=== PATIENT | male | born 1960 | race American Indian/Alaskan Native ===

== ENCOUNTER 2017-12-10 12:17 | Inpatient (IN) | payer MEDICAID ==
[2017-12-10 14:15] LABS: Hematocrit 43.9 % (35.5-45.6); Hemoglobin 14.6 gm/dl (11.8-15.2); Mean Corpuscular HGB Conc 33 % (32-34); Mean Corpuscular Hemoglobin 30 pg (28-32); Mean Corpuscular Volume 90 fl (84-94); Platelet Count 244 K/mm3 (140-440); Red Blood Count 4.88 M/mm3 (3.65-5.03); Red Cell Distribution Width 13.8 % (13.2-15.2)
[2017-12-10 14:19] LABS: Bacteria,Urine 2+ /HPF (Negative); Bilirubin,Urine NEG (Negative); Blood,Urine LG (Negative); Color,Urine Yellow (Yellow); Mucus,Urine 1+ /HPF; WBC,Urine > 182.0 /HPF (0.0-6.0)
--- NOTE | 2017-12-10 14:22 | XRay Report ---
AP CHEST: HISTORY: Altered mental status, recent pneumonia AP view of the chest demonstrates a normal mediastinal and cardiac contour with clear lungs and normal bony and soft tissue structures. IMPRESSION: Unremarkable AP chest.
[2017-12-10 14:25] LABS: INR 0.91 (0.87-1.13)
[2017-12-10 14:26] LABS: Partial Thromboplastin Time 33.2 Sec. (24.2-36.6)
--- NOTE | 2017-12-10 14:27 | Cat Scan Report ---
FINAL REPORT EXAM: CT HEAD/BRAIN WO CON HISTORY: Altered Mental Status TECHNIQUE: CT of the head was performed without intravenous contrast. PRIORS: None. FINDINGS: The ventricles are normal in shape and position. The ventricles are nondilated. No intracranial hemorrhage, mass, mass effect, midline shift or evidence of acute ischemic infarct. The basilar cisterns are patent. Confluent areas of low-attenuation are seen in the periventricular and subcortical white matter. Mucosal thickening of the ethmoid, frontal and right maxillary sinuses is likely congestive or inflammatory. The extracranial soft tissues demonstrate no abnormality. The calvarium is intact. The orbits are intact. There is a left mastoid effusion. IMPRESSION: 1. Severe white matter changes which are nonspecific in a patient this age although may be related to chronic microvascular ischemic disease versus a demyelinating or inflammatory process. 2. Left mastoid effusion. 3. Mucosal thickening of the ethmoid, frontal and right maxillary sinuses is likely congestive or inflammatory.
[2017-12-10 14:39] LABS: Alanine Aminotransferase 12 units/L (7-56); Albumin 3.9 g/dL (3.9-5); BUN/Creatinine Ratio 12; Blood Urea Nitrogen 11 mg/dL (9-20); Calcium 9.1 mg/dL (8.4-10.2); Hemolysis Index 6
[2017-12-10] MEDS ORDERED: ROCEPHIN/NS 1 GM/50 ML 1 GM/50 ML BAG IV ONE (14:44)
[2017-12-10 14:47] LABS: Free T4 (Free Thyroxine) 1.09 ng/dL (0.76-1.46)
--- NOTE | 2017-12-10 14:51 | Emergency Department Report ---
ED Altered Mental Status HPI - General Chief Complaint: Altered Mental Status Stated Complaint: AMS Time Seen by Provider: 12/10/17 12:42 Source: EMS Mode of arrival: Stretcher Limitations: Altered Mental Status - History of Present Illness Initial Comments: 57-year-old male with a past medical history dementia, previous CVA with unknown deficits, and hypertension presents to Hospital complains of also recent mental status from [facility]. Patient is oriented to self only. As per transfer sheet patient was not responding well and couldn't raise his right arm or wheeze with his right hand prior to arrival. Patient denies any pain currently and does not know why he is here. No other history of present illness available at this time. PMD R Cardenas - Related Data Previous Rx's Medication Instructions Recorded Last Taken Type Pantoprazole [Protonix TAB] 40 mg PO BID tablet 10/05/15 Unknown Rx Allergies Allergy/AdvReac Type Severity Reaction Status Date / Time No Known Allergies Allergy Unverified 01/16/15 16:16 ED Review of Systems ROS: Stated complaint: AMS Other details as noted in HPI Comment: Unobtainable due to pts medical conditions (limited due to dementia) ED Past Medical Hx - Past Medical History Previous Medical History?: Yes Hx Dementia: Yes Additional medical history: GEN, bradycardia, GERD, Htn - Surgical History Past Surgical History?: No Additional Surgical History: GEN - Social History Smoking Status: Unknown if ever smoked Substance Use Type: None - Medications Home Medications: Home Medications Medication Instructions Recorded Confirmed Last Taken Type Pantoprazole [Protonix TAB] 40 mg PO BID tablet 10/05/15 Unknown Rx ED Physical Exam - General Limitations: Altered Mental Status - Other Other exam information: General: No limitations, patient is alert in no acute distress Head exam: Atraumatic, normocephalic Eyes exam: Normal appearance, pupils equal reactive to light, extraocular movements intact ENT: Moist mucous membrane, normal oropharynx Neck exam: Normal inspection, full range of motion, no meningismus nontender Respiratory exam: Clear to auscultation bilateral, no wheezes, rales, crackles Cardiovascular: Normal rate and rhythm, normal heart sounds Abdomen: Soft, nondistended, and nontender, with normal bowel sounds, no rebound, or guarding Extremity: Full range of motion normal inspection no deformity Back: Normal Inspection, full range of motion, no tenderness Neurologic: Alert, oriented to self only, no facial droop, speech clear, mild left-sided weakness with decreased foot dorsiflexion and handgrip on the left. Sensation intact Psychiatric: normal affect, normal mood Skin: Warm, dry, intact ED Course Vital Signs 12/10/17 12/10/17 12/10/17 12:17 12:24 12:33 Temperature 97.6 F 97.6 F Pulse Rate 97 H 100 H 100 H Respiratory 19 20 20 Rate Blood Pressure 108/73 Blood Pressure 108/73 [Left] O2 Sat by Pulse 99 98 Oximetry - Reevaluation(s) Reevaluation #1: 12/10/17 14:55 stable, mild tachycardia, responsive since arrival - Lab Data Result diagrams: 12/10/17 13:58 12/10/17 13:58 Lab Results 12/10/17 12/10/17 12/10/17 Range/Units 13:53 13:58 13:58 WBC 18.0 H (4.5-11.0) K/mm3 RBC 4.88 (3.65-5.03) M/mm3 Hgb 14.6 (11.8-15.2) gm/dl Hct 43.9 (35.5-45.6) % MCV 90 (84-94) fl MCH 30 (28-32) pg MCHC 33 (32-34) % RDW 13.8 (13.2-15.2) % Plt Count 244 (140-440) K/mm3 Seg Neutrophils % Inspector Multifocal Lens PT 12.7 (12.2-14.9) Sec. INR 0.91 (0.87-1.13) APTT 33.2 (24.2-36.6) Sec. Sodium (137-145) mmol/L Potassium (3.6-5.0) mmol/L Chloride (98-107) mmol/L Carbon Dioxide (22-30) mmol/L Anion Gap mmol/L BUN (9-20) mg/dL Creatinine (0.8-1.5) mg/dL Estimated GFR ml/min BUN/Creatinine Ratio % Glucose (75-100) mg/dL Lactic Acid (0.7-2.0) mmol/L Calcium (8.4-10.2) mg/dL Total Bilirubin (0.1-1.2) mg/dL AST (5-40) units/L ALT (7-56) units/L Alkaline Phosphatase (35-129) units/L Ammonia (25-60) umol/L Troponin T (0.00-0.029) ng/mL Total Protein (6.3-8.2) g/dL Albumin (3.9-5) g/dL Albumin/Globulin Ratio % TSH (0.270-4.200) mlU/mL Free T4 (0.76-1.46) ng/dL Urine Color Yellow (Yellow) Urine Turbidity Clear (Clear) Urine pH 6.0 (5.0-7.0) Ur Specific [place] 1.017 (1.003-1.030) Urine Protein 100 mg/dl (Negative) mg/dL Urine Glucose (UA) Neg (Negative) mg/dL Urine Ketones Neg (Negative) mg/dL Urine Blood Lg (Negative) Urine Nitrite Pos (Negative) Urine Bilirubin Neg (Negative) Urine Urobilinogen 4.0 (<2.0) mg/dL Ur Leukocyte Esterase Lg (Negative) Urine WBC (Auto) > 182.0 H (0.0-6.0) /HPF Urine RBC (Auto) 145.0 (0.0-6.0) /HPF Urine Bacteria (Auto) 2+ (Negative) /HPF Urine WBC Clumps 3+ /HPF Urine Mucus 1+ /HPF Urine Yeast (Budding) 3+ /HPF Salicylates (2.8-20.0) mg/dL Acetaminophen (10.0-30.0) ug/mL Plasma/Serum Alcohol (0-0.07) % 12/10/17 12/10/17 12/10/17 Range/Units 13:58 13:58 13:58 WBC (4.5-11.0) K/mm3 RBC (3.65-5.03) M/mm3 Hgb (11.8-15.2) gm/dl Hct (35.5-45.6) % MCV (84-94) fl MCH (28-32) pg MCHC (32-34) % RDW (13.2-15.2) % Plt Count (140-440) K/mm3 Seg Neutrophils % PT (12.2-14.9) Sec. INR (0.87-1.13) APTT (24.2-36.6) Sec. Sodium 138 (137-145) mmol/L Potassium 4.0 (3.6-5.0) mmol/L Chloride 98.4 (98-107) mmol/L Carbon Dioxide 27 (22-30) mmol/L Anion Gap 17 mmol/L BUN 11 (9-20) mg/dL Creatinine 0.9 (0.8-1.5) mg/dL Estimated GFR > 60 ml/min BUN/Creatinine Ratio 12 % Glucose 110 H (75-100) mg/dL Lactic Acid 1.20 (0.7-2.0) mmol/L Calcium 9.1 (8.4-10.2) mg/dL Total Bilirubin 0.60 (0.1-1.2) mg/dL AST 19 (5-40) units/L ALT 12 (7-56) units/L Alkaline Phosphatase 60 (35-129) units/L Ammonia (25-60) umol/L Troponin T 0.016 (0.00-0.029) ng/mL Total Protein 7.9 (6.3-8.2) g/dL Albumin 3.9 (3.9-5) g/dL Albumin/Globulin Ratio 1.0 % TSH (0.270-4.200) mlU/mL Free T4 (0.76-1.46) ng/dL Urine Color (Yellow) Urine Turbidity (Clear) Urine pH (5.0-7.0) Ur Specific [place] (1.003-1.030) Urine Protein (Negative) mg/dL Urine Glucose (UA) (Negative) mg/dL Urine Ketones (Negative) mg/dL Urine Blood (Negative) Urine Nitrite (Negative) Urine Bilirubin (Negative) Urine Urobilinogen (<2.0) mg/dL Ur Leukocyte Esterase (Negative) Urine WBC (Auto) (0.0-6.0) /HPF Urine RBC (Auto) (0.0-6.0) /HPF Urine Bacteria (Auto) (Negative) /HPF Urine WBC Clumps /HPF Urine Mucus /HPF Urine Yeast (Budding) /HPF Salicylates < 0.3 L (2.8-20.0) mg/dL Acetaminophen (10.0-30.0) ug/mL Plasma/Serum Alcohol (0-0.07) % 12/10/17 12/10/17 12/10/17 Range/Units 13:58 13:58 13:58 WBC (4.5-11.0) K/mm3 RBC (3.65-5.03) M/mm3 Hgb (11.8-15.2) gm/dl Hct (35.5-45.6) % MCV (84-94) fl MCH (28-32) pg MCHC (32-34) % RDW (13.2-15.2) % Plt Count (140-440) K/mm3 Seg Neutrophils % PT (12.2-14.9) Sec. INR (0.87-1.13) APTT (24.2-36.6) Sec. Sodium (137-145) mmol/L Potassium (3.6-5.0) mmol/L Chloride (98-107) mmol/L Carbon Dioxide (22-30) mmol/L Anion Gap mmol/L BUN (9-20) mg/dL Creatinine (0.8-1.5) mg/dL Estimated GFR ml/min BUN/Creatinine Ratio % Glucose (75-100) mg/dL Lactic Acid (0.7-2.0) mmol/L Calcium (8.4-10.2) mg/dL Total Bilirubin (0.1-1.2) mg/dL AST (5-40) units/L ALT (7-56) units/L Alkaline Phosphatase (35-129) units/L Ammonia (25-60) umol/L Troponin T 0.016 (0.00-0.029) ng/mL Total Protein (6.3-8.2) g/dL Albumin (3.9-5) g/dL Albumin/Globulin Ratio % TSH (0.270-4.200) mlU/mL Free T4 (0.76-1.46) ng/dL Urine Color (Yellow) Urine Turbidity (Clear) Urine pH (5.0-7.0) Ur Specific [place] (1.003-1.030) Urine Protein (Negative) mg/dL Urine Glucose (UA) (Negative) mg/dL Urine Ketones (Negative) mg/dL Urine Blood (Negative) Urine Nitrite (Negative) Urine Bilirubin (Negative) Urine Urobilinogen (<2.0) mg/dL Ur Leukocyte Esterase (Negative) Urine WBC (Auto) (0.0-6.0) /HPF Urine RBC (Auto) (0.0-6.0) /HPF Urine Bacteria (Auto) (Negative) /HPF Urine WBC Clumps /HPF Urine Mucus /HPF Urine Yeast (Budding) /HPF Salicylates (2.8-20.0) mg/dL Acetaminophen < 15.0 (10.0-30.0) ug/mL Plasma/Serum Alcohol < 0.01 (0-0.07) % 12/10/17 12/10/17 Range/Units 13:58 13:58 WBC (4.5-11.0) K/mm3 RBC (3.65-5.03) M/mm3 Hgb (11.8-15.2) gm/dl Hct (35.5-45.6) % MCV (84-94) fl MCH (28-32) pg MCHC (32-34) % RDW (13.2-15.2) % Plt Count (140-440) K/mm3 Seg Neutrophils % PT (12.2-14.9) Sec. INR (0.87-1.13) APTT (24.2-36.6) Sec. Sodium (137-145) mmol/L Potassium (3.6-5.0) mmol/L Chloride (98-107) mmol/L Carbon Dioxide (22-30) mmol/L Anion Gap mmol/L BUN (9-20) mg/dL Creatinine (0.8-1.5) mg/dL Estimated GFR ml/min BUN/Creatinine Ratio % Glucose (75-100) mg/dL Lactic Acid (0.7-2.0) mmol/L Calcium (8.4-10.2) mg/dL Total Bilirubin (0.1-1.2) mg/dL AST (5-40) units/L ALT (7-56) units/L Alkaline Phosphatase (35-129) units/L Ammonia 24.0 L (25-60) umol/L Troponin T (0.00-0.029) ng/mL Total Protein (6.3-8.2) g/dL Albumin (3.9-5) g/dL Albumin/Globulin Ratio % TSH 2.010 (0.270-4.200) mlU/mL Free T4 1.09 (0.76-1.46) ng/dL Urine Color (Yellow) Urine Turbidity (Clear) Urine pH (5.0-7.0) Ur Specific [place] (1.003-1.030) Urine Protein (Negative) mg/dL Urine Glucose (UA) (Negative) mg/dL Urine Ketones (Negative) mg/dL Urine Blood (Negative) Urine Nitrite (Negative) Urine Bilirubin (Negative) Urine Urobilinogen (<2.0) mg/dL Ur Leukocyte Esterase (Negative) Urine WBC (Auto) (0.0-6.0) /HPF Urine RBC (Auto) (0.0-6.0) /HPF Urine Bacteria (Auto) (Negative) /HPF Urine WBC Clumps /HPF Urine Mucus /HPF Urine Yeast (Budding) /HPF Salicylates (2.8-20.0) mg/dL Acetaminophen (10.0-30.0) ug/mL Plasma/Serum Alcohol (0-0.07) % - EKG Data -: EKG Interpreted by Me (jules) EKG shows normal: sinus rhythm, axis (-49), QRS complexes (102), ST-T waves (no stemi/t inv) Rate: tachycardia (102) - Radiology Data Radiology results: report reviewed Read By radiologist CT head: Severe white matter changes which are nonspecific. Left mastoid effusion. Mucosal thickening of the ethmoid, frontal, and right maxillary sinus likely congestive or inflammatory Chest x-ray: Unremarkable - Medical Decision Making Patient has UTI likely cause of alteration in mental status with chronic dementia. Also multiple sinus findings identified on ENT. Levaquin ordered to cover for sinusitis as well as UTI. Cultures pending. - Differential Diagnosis delirium, dementia, ICH, CVA, UTI, encephalopathy Critical Care Time: No Critical care attestation.: If time is entered above; I have spent that time in minutes in the direct care of this critically ill patient, excluding procedure time. ED Disposition Clinical Impression: Altered mental status, UTI (urinary tract infection), Sinusitis, Dementia, Leukocytosis Disposition: DC09 OP ADMIT IP TO THIS HOSP Is pt being admited?: Yes Condition: Stable Time of Disposition: 14:54
[2017-12-10] MEDS ORDERED: LEVAQUIN 750MG/150ML 750 MG/150 ML BAG IV ONE (14:52)
--- NOTE | 2017-12-10 15:08 | History and Physical Report ---
History of Present Illness Chief complaint: confusion History of present illness: 57 YO Male [facility] Resident with CVA, Dementia, GERD, HTN presents to ED for evaluation. Pt nonverbal, and unable to provide history. Pt history taken from ED Staff, SNF Staff, and EMS. Pt was found by SNF staff to be more confused today with decreased interaction with staff. EMS notified, and upon arrival the patient was found to be hypotensive and tachycardic with altered level of consciousness. Pt transported to [facility] for further care and evaluation. Pt seen and evaluated in ED and found to have UTI complicated by sepsis. Pt initiated on sepsis protocol and admitted to the medical floor. No reports of fever, chills, palpitations, NVD, falls, trauma, productive cough, hematuria, or known recent ill contacts. Past History Past Medical History: GERD, hypertension, stroke Past Surgical History: No surgical history, Other (reviewed) Social history: single. denies: smoking, alcohol abuse, prescription drug abuse Family history: no significant family history (reviewed) Medications and Allergies Allergies Allergy/AdvReac Type Severity Reaction Status Date / Time No Known Allergies Allergy Unverified 01/16/15 16:16 Home Medications Medication Instructions Recorded Confirmed Last Taken Type Multivitamin [Multiple Vitamins] 1 each PO DAILY 12/10/17 12/10/17 Unknown History Active Meds: Active Medications Levofloxacin/Dextrose (Levaquin 750mg/150ml) 750 mg in 150 mls @ 100 mls/hr IV ONCE ONE Stop: 12/10/17 16:21 Review of Systems ROS unobtainable: due to mental status Exam - Constitutional Vitals: Temp Pulse Resp BP Pulse Ox 97.6 F 100 H 20 108/73 98 12/10/17 12:33 12/10/17 12:33 12/10/17 12:33 12/10/17 12:33 12/10/17 12:33 General appearance: Present: mild distress - EENT Eyes: Present: PERRL ENT: hearing intact, clear oral mucosa - Neck Neck: Present: supple, normal ROM - Respiratory Respiratory effort: normal Respiratory: bilateral: CTA - Cardiovascular Rhythm: other (tachycardia) Heart Sounds: Present: S1 & S2. Absent: rub, click - Extremities Extremities: pulses symmetrical, No edema Peripheral Pulses: abnormal (capillary refill greater than 3.6 seconds) - Abdominal General gastrointestinal: Present: soft, non-tender, non-distended, normal bowel sounds Male genitourinary: Present: normal - Integumentary Integumentary: Present: clear, dry, clammy, decreased turgor - Musculoskeletal Musculoskeletal: generalized weakness - Psychiatric Psychiatric: no intact judgment & insight, no memory intact - Neurologic Neurologic: focal deficits, no gait normal Results - Labs CBC & Chem 7: 12/10/17 13:58 12/10/17 13:58 Labs: Abnormal lab results 12/10/17 12/10/17 12/10/17 Range/Units 13:53 13:58 13:58 WBC 18.0 H (4.5-11.0) K/mm3 Glucose 110 H (75-100) mg/dL Ammonia (25-60) umol/L Urine WBC (Auto) > 182.0 H (0.0-6.0) /HPF Salicylates (2.8-20.0) mg/dL 12/10/17 12/10/17 Range/Units 13:58 13:58 WBC (4.5-11.0) K/mm3 Glucose (75-100) mg/dL Ammonia 24.0 L (25-60) umol/L Urine WBC (Auto) (0.0-6.0) /HPF Salicylates < 0.3 L (2.8-20.0) mg/dL Assessment and Plan - Patient Problems (1) Sepsis Current Visit: Yes Status: Acute Qualifiers: Sepsis type: sepsis due to unspecified organism Qualified Code(s): A41.9 - Sepsis, unspecified organism Plan to address problem: IV Antibiotic therapy, urinalysis, blood cultures, monitor uop q shift, serial lactic acid, IVF resuscitation, (2) Encephalopathy Current Visit: Yes Status: Acute Plan to address problem: CT Head, treat sepsis, neuro checks, (3) GERD (gastroesophageal reflux disease) Current Visit: Yes Status: Acute Qualifiers: Esophagitis presence: without esophagitis Qualified Code(s): K21.9 - Gastro -esophageal reflux disease without esophagitis Plan to address problem: PPI therapy, supportive care. (4) HTN (hypertension) Current Visit: Yes Status: Acute Qualifiers: Hypertension type: essential hypertension Qualified Code(s): I10 - Essential (primary) hypertension Plan to address problem: monitor BP q shift, Pt currently hypotensive, hold antihypertensive therapy for now. (5) UTI (urinary tract infection) Current Visit: Yes Status: Acute Qualifiers: Encounter type: initial encounter Plan to address problem: IV antibiotics, IVF resuscitation, monitor uop q shift, (6) DVT prophylaxis Current Visit: Yes Status: Acute
[2017-12-10] MEDS ORDERED: TYLENOL PO PRN (15:10)
[2017-12-10] MEDS ORDERED: VANCOMYCIN VIAL IV ONE (15:10)
[2017-12-10] MEDS ORDERED: PROVENTIL IH PRN (15:10)
[2017-12-10] MEDS ORDERED: NACL 0.9% 1000 ML IV ONE (15:10)
[2017-12-10] MEDS ORDERED: ZOFRAN IV PRN (15:10)
[2017-12-10] MEDS ORDERED: SODIUM CHLORIDE FLUSH SYRINGE 10 ML IV PRN (15:10)
[2017-12-10 15:14] LABS: Band Neutrophils # (Manual) 6.7 K/mm3; Basophils % (Manual) 0 % (0.0-1.8); Eosinophils % (Manual) 0 % (0.0-4.3); Platelet Estimate Consistent w Auto; RBC Morphology Normal; Total Cells Counted 100
[2017-12-10] MEDS ORDERED: VANCOMYCIN PHARMACY TO DOSE IV SCH (16:00)
[2017-12-10] MEDS ORDERED: LEVAQUIN 750MG/150ML 750 MG/150 ML BAG IV SCH (16:00)
[2017-12-10] MEDS ORDERED: VANCOMYCIN 1,500 MG in NACL 0.9% 500 ML 500 ML IV ONE (17:00)
[2017-12-10] MEDS: SODIUM CHLORIDE FLUSH SYRINGE 10 ML IV SCH (22:29)
[2017-12-10] MEDS: PROTONIX PO SCH (22:29)
[2017-12-11] MEDS: VANCOMYCIN 1,250 MG in NACL 0.9% 250ML 250 ML IV SCH ×2 (06:11→18:56)
[2017-12-11] MEDS: PROTONIX PO SCH ×2 (10:28→21:42)
[2017-12-11] MEDS: LEVAQUIN 750MG/150ML 750 MG/150 ML BAG IV SCH (10:28)
[2017-12-11] MEDS: SODIUM CHLORIDE FLUSH SYRINGE 10 ML IV SCH ×2 (10:30→21:42)
--- NOTE | 2017-12-11 10:53 | Progress Note ---
Assessment and Plan Assessment and plan: Sepsis. Continue IV antibiotics. Follow-up urine and blood cultures. Patient with mildly elevated lactic acid levels. Continue to follow serial lactic acid levels. Toxic metabolic encephalopathy. Resolving. CT of the head is negative. Continue to treat sepsis. Urinary tract infection. Continue antibiotic support follow-up urine cultures. GERD. Continue PPI. Hypertension. Continue antihypertensive medications. History CVA. Supportive care. DVT prophylaxis. History Interval history: No new issues overnight. Patient is alert and oriented 3. Hospitalist Physical - Constitutional Vitals: Temp Pulse Resp BP Pulse Ox 97.4 F L 69 18 82/53 100 12/11/17 08:00 12/11/17 08:00 12/11/17 08:00 12/11/17 08:00 12/11/17 08:00 General appearance: Present: mild distress - EENT Eyes: Present: PERRL, EOM intact ENT: hearing intact, clear oral mucosa, dentition normal - Neck Neck: Present: supple, normal ROM - Respiratory Respiratory effort: normal Respiratory: bilateral: CTA - Cardiovascular Rhythm: regular Heart Sounds: Present: S1 & S2. Absent: gallop, rub - Extremities Extremities: no ischemia, No edema, Full ROM - Abdominal General gastrointestinal: soft, non-tender, non-distended, normal bowel sounds - Integumentary Integumentary: Present: clear, warm, dry - Neurologic Neurologic: CNII-XII intact, moves all extremities Results - Labs CBC & Chem 7: 12/10/17 13:58 12/10/17 13:58 Labs: Laboratory Last Values WBC 18.0 K/mm3 (4.5-11.0) H 12/10/17 13:58 RBC 4.88 M/mm3 (3.65-5.03) 12/10/17 13:58 Hgb 14.6 gm/dl (11.8-15.2) 12/10/17 13:58 Hct 43.9 % (35.5-45.6) 12/10/17 13:58 MCV 90 fl (84-94) 12/10/17 13:58 MCH 30 pg (28-32) 12/10/17 13:58 MCHC 33 % (32-34) 12/10/17 13:58 RDW 13.8 % (13.2-15.2) 12/10/17 13:58 Plt Count 244 K/mm3 (140-440) 12/10/17 13:58 Add Manual Diff Complete 12/10/17 13:58 Total Counted 100 12/10/17 13:58 Seg Neutrophils % Mechanical Cad Designer 12/10/17 13:58 Seg Neuts % (Manual) 60.0 % (40.0-70.0) 12/10/17 13:58 Band Neutrophils % 37.0 % 12/10/17 13:58 Lymphocytes % (Manual) 2.0 % (13.4-35.0) L 12/10/17 13:58 Reactive Lymphs % (Man) 0 % 12/10/17 13:58 Monocytes % (Manual) 1.0 % (0.0-7.3) 12/10/17 13:58 Eosinophils % (Manual) 0 % (0.0-4.3) 12/10/17 13:58 Basophils % (Manual) 0 % (0.0-1.8) 12/10/17 13:58 Metamyelocytes % 0 % 12/10/17 13:58 Myelocytes % 0 % 12/10/17 13:58 Promyelocytes % 0 % 12/10/17 13:58 Blast Cells % 0 % 12/10/17 13:58 Nucleated RBC % Not Reportable 12/10/17 13:58 Seg Neutrophils # Man 10.8 K/mm3 (1.8-7.7) H 12/10/17 13:58 Band Neutrophils # 6.7 K/mm3 12/10/17 13:58 Lymphocytes # (Manual) 0.4 K/mm3 (1.2-5.4) L 12/10/17 13:58 Abs React Lymphs (Man) 0.0 K/mm3 12/10/17 13:58 Monocytes # (Manual) 0.2 K/mm3 (0.0-0.8) 12/10/17 13:58 Eosinophils # (Manual) 0.0 K/mm3 (0.0-0.4) 12/10/17 13:58 Basophils # (Manual) 0.0 K/mm3 (0.0-0.1) 12/10/17 13:58 Metamyelocytes # 0.0 K/mm3 12/10/17 13:58 Myelocytes # 0.0 K/mm3 12/10/17 13:58 Promyelocytes # 0.0 K/mm3 12/10/17 13:58 Blast Cells # 0.0 K/mm3 12/10/17 13:58 WBC Morphology Not Reportable 12/10/17 13:58 Hypersegmented Neuts Not Reportable 12/10/17 13:58 Hyposegmented Neuts Not Reportable 12/10/17 13:58 Hypogranular Neuts Not Reportable 12/10/17 13:58 Smudge Cells Not Reportable 12/10/17 13:58 Toxic Granulation Not Reportable 12/10/17 13:58 Toxic Vacuolation Not Reportable 12/10/17 13:58 Dohle Bodies Not Reportable 12/10/17 13:58 Pelger-Huet Anomaly Not Reportable 12/10/17 13:58 Compa Rods Not Reportable 12/10/17 13:58 Platelet Estimate Consistent w auto 12/10/17 13:58 Clumped Platelets Not Reportable 12/10/17 13:58 Plt Clumps, EDTA Not Reportable 12/10/17 13:58 Large Platelets Not Reportable 12/10/17 13:58 Giant Platelets Not Reportable 12/10/17 13:58 Platelet Satelliting Not Reportable 12/10/17 13:58 Plt Morphology Comment Not Reportable 12/10/17 13:58 RBC Morphology Normal 12/10/17 13:58 Dimorphic RBCs Not Reportable 12/10/17 13:58 Polychromasia Not Reportable 12/10/17 13:58 Hypochromasia Not Reportable 12/10/17 13:58 Poikilocytosis Not Reportable 12/10/17 13:58 Anisocytosis Not Reportable 12/10/17 13:58 Microcytosis Not Reportable 12/10/17 13:58 Macrocytosis Not Reportable 12/10/17 13:58 Spherocytes Not Reportable 12/10/17 13:58 Pappenheimer Bodies Not Reportable 12/10/17 13:58 Sickle Cells Not Reportable 12/10/17 13:58 Target Cells Not Reportable 12/10/17 13:58 Tear Drop Cells Not Reportable 12/10/17 13:58 Ovalocytes Not Reportable 12/10/17 13:58 Helmet Cells Not Reportable 12/10/17 13:[address] [place] Bodies Not Reportable 12/10/17 13:58 Gary Rings Not Reportable 12/10/17 13:58 Jean Paul Cells Not Reportable 12/10/17 13:58 Bite Cells Not Reportable 12/10/17 13:58 Crenated Cell Not Reportable 12/10/17 13:58 Elliptocytes Not Reportable 12/10/17 13:58 Acanthocytes (Spur) Not Reportable 12/10/17 13:58 Rouleaux Not Reportable 12/10/17 13:58 Hemoglobin C Crystals Not Reportable 12/10/17 13:58 Schistocytes Not Reportable 12/10/17 13:58 Malaria parasites Not Reportable 12/10/17 13:58 Jasvir Bodies Not Reportable 12/10/17 13:58 Hem Pathologist Commnt No 12/10/17 13:58 PT 12.7 Sec. (12.2-14.9) 12/10/17 13:58 INR 0.91 (0.87-1.13) 12/10/17 13:58 APTT 33.2 Sec. (24.2-36.6) 12/10/17 13:58 Sodium 138 mmol/L (137-145) 12/10/17 13:58 Potassium 4.0 mmol/L (3.6-5.0) 12/10/17 13:58 Chloride 98.4 mmol/L (98-107) 12/10/17 13:58 Carbon Dioxide 27 mmol/L (22-30) 12/10/17 13:58 Anion Gap 17 mmol/L 12/10/17 13:58 BUN 11 mg/dL (9-20) 12/10/17 13:58 Creatinine 0.9 mg/dL (0.8-1.5) 12/10/17 13:58 Estimated GFR > 60 ml/min 12/10/17 13:58 BUN/Creatinine Ratio 12 % 12/10/17 13:58 Glucose 110 mg/dL (75-100) H 12/10/17 13:58 Lactic Acid 0.90 mmol/L (0.7-2.0) 12/11/17 05:45 Calcium 9.1 mg/dL (8.4-10.2) 12/10/17 13:58 Total Bilirubin 0.60 mg/dL (0.1-1.2) 12/10/17 13:58 AST 19 units/L (5-40) 12/10/17 13:58 ALT 12 units/L (7-56) 12/10/17 13:58 Alkaline Phosphatase 60 units/L (35-129) 12/10/17 13:58 Ammonia 24.0 umol/L (25-60) L 12/10/17 13:58 Troponin T < 0.010 ng/mL (0.00-0.029) 12/10/17 17:44 Total Protein 7.9 g/dL (6.3-8.2) 12/10/17 13:58 Albumin 3.9 g/dL (3.9-5) 12/10/17 13:58 Albumin/Globulin Ratio 1.0 % 12/10/17 13:58 TSH 2.010 mlU/mL (0.270-4.200) 12/10/17 13:58 Free T4 1.09 ng/dL (0.76-1.46) 12/10/17 13:58 Urine Color Yellow (Yellow) 12/10/17 13:53 Urine Turbidity Clear (Clear) 12/10/17 13:53 Urine pH 6.0 (5.0-7.0) 12/10/17 13:53 Ur Specific [place] 1.017 (1.003-1.030) 12/10/17 13:53 Urine Protein 100 mg/dl mg/dL (Negative) 12/10/17 13:53 Urine Glucose (UA) Neg mg/dL (Negative) 12/10/17 13:53 Urine Ketones Neg mg/dL (Negative) 12/10/17 13:53 Urine Blood Lg (Negative) 12/10/17 13:53 Urine Nitrite Pos (Negative) 12/10/17 13:53 Urine Bilirubin Neg (Negative) 12/10/17 13:53 Urine Urobilinogen 4.0 mg/dL (<2.0) 12/10/17 13:53 Ur Leukocyte Esterase Lg (Negative) 12/10/17 13:53 Urine WBC (Auto) > 182.0 /HPF (0.0-6.0) H 12/10/17 13:53 Urine RBC (Auto) 145.0 /HPF (0.0-6.0) 12/10/17 13:53 Urine Bacteria (Auto) 2+ /HPF (Negative) 12/10/17 13:53 Urine WBC Clumps 3+ /HPF 12/10/17 13:53 Urine Mucus 1+ /HPF 12/10/17 13:53 Urine Yeast (Budding) 3+ /HPF 12/10/17 13:53 Salicylates < 0.3 mg/dL (2.8-20.0) L 12/10/17 13:58 Acetaminophen < 15.0 ug/mL (10.0-30.0) 12/10/17 13:58 Plasma/Serum Alcohol < 0.01 % (0-0.07) 12/10/17 13:58
[2017-12-11] MEDS ORDERED: PNEUMOVAX 23 IM ONE (12:00)
[2017-12-12 05:49] LABS: Basophils # (Auto) 0.1 K/mm3 (0.0-0.1); Basophils % (Auto) 0.6 % (0.0-1.8); Eosinophils # (Auto) 0.2 K/mm3 (0.0-0.4); Eosinophils % (Auto) 2.1 % (0.0-4.3); Hematocrit 37.5 % (35.5-45.6); Hemoglobin 12.7 gm/dl (11.8-15.2); Lymphocytes # (Auto) 2.1 K/mm3 (1.2-5.4); Lymphocytes % (Auto) 22.1 % (13.4-35.0); Mean Corpuscular HGB Conc 34 % (32-34); Mean Corpuscular Hemoglobin 30 pg (28-32); Mean Corpuscular Volume 89 fl (84-94); Monocytes # (Auto) 0.6 K/mm3 (0.0-0.8); Monocytes % (Auto) 6.9 % (0.0-7.3); Platelet Count 203 K/mm3 (140-440); Red Blood Count 4.22 M/mm3 (3.65-5.03); Red Cell Distribution Width 14.2 % (13.2-15.2)
[2017-12-12 06:13] LABS: BUN/Creatinine Ratio 10; Blood Urea Nitrogen 9 mg/dL (9-20); Calcium 8.9 mg/dL (8.4-10.2); Hemolysis Index 6
[2017-12-12] MEDS: VANCOMYCIN 1,250 MG in NACL 0.9% 250ML 250 ML IV SCH (06:29)
--- NOTE | 2017-12-12 09:22 | Progress Note ---
Assessment and Plan Assessment and plan: Sepsis. Continue IV antibiotics. Follow-up blood cultures. Toxic metabolic encephalopathy. Resolving. CT of the head is negative. Continue to treat sepsis. Urinary tract infection. Continue antibiotics GERD. Continue PPI. Hypertension. Continue antihypertensive medications. History CVA. Supportive care. DVT prophylaxis. Disposition. If Blood cultures remained negative, likely discharge in a.m. History Interval history: No new issues overnight. Hospitalist Physical - Constitutional Vitals: Temp Pulse Resp BP Pulse Ox 97.5 F L 69 18 99/62 98 12/12/17 07:33 12/12/17 07:34 12/12/17 07:33 12/12/17 07:33 12/12/17 07:34 General appearance: Present: no acute distress - EENT Eyes: Present: PERRL, EOM intact ENT: hearing intact, clear oral mucosa, dentition normal - Neck Neck: Present: supple, normal ROM - Respiratory Respiratory effort: normal Respiratory: bilateral: CTA - Cardiovascular Rhythm: regular Heart Sounds: Present: S1 & S2. Absent: gallop, rub - Extremities Extremities: no ischemia, No edema, Full ROM - Abdominal General gastrointestinal: soft, non-tender, non-distended, normal bowel sounds - Integumentary Integumentary: Present: clear, warm, dry - Neurologic Neurologic: CNII-XII intact, moves all extremities Results - Labs CBC & Chem 7: 12/12/17 05:27 12/12/17 05:27 Labs: Laboratory Last Values WBC 9.4 K/mm3 (4.5-11.0) 12/12/17 05:27 RBC 4.22 M/mm3 (3.65-5.03) 12/12/17 05:27 Hgb 12.7 gm/dl (11.8-15.2) 12/12/17 05:27 Hct 37.5 % (35.5-45.6) D 12/12/17 05:27 MCV 89 fl (84-94) 12/12/17 05:27 MCH 30 pg (28-32) 12/12/17 05:27 MCHC 34 % (32-34) 12/12/17 05:27 RDW 14.2 % (13.2-15.2) 12/12/17 05:27 Plt Count 203 K/mm3 (140-440) 12/12/17 05:27 Lymph % (Auto) 22.1 % (13.4-35.0) 12/12/17 05:27 [place] % (Auto) 6.9 % (0.0-7.3) 12/12/17 05:27 Eos % (Auto) 2.1 % (0.0-4.3) 12/12/17 05:27 Baso % (Auto) 0.6 % (0.0-1.8) 12/12/17 05:27 Lymph # 2.1 K/mm3 (1.2-5.4) 12/12/17 05:27 [place]ke # 0.6 K/mm3 (0.0-0.8) 12/12/17 05:27 Eos # 0.2 K/mm3 (0.0-0.4) 12/12/17 05:27 Baso # 0.1 K/mm3 (0.0-0.1) 12/12/17 05:27 Add Manual Diff Complete 12/10/17 13:58 Total Counted 100 12/10/17 13:58 Seg Neutrophils % 68.3 % (40.0-70.0) 12/12/17 05:27 Seg Neuts % (Manual) 60.0 % (40.0-70.0) 12/10/17 13:58 Band Neutrophils % 37.0 % 12/10/17 13:58 Lymphocytes % (Manual) 2.0 % (13.4-35.0) L 12/10/17 13:58 Reactive Lymphs % (Man) 0 % 12/10/17 13:58 Monocytes % (Manual) 1.0 % (0.0-7.3) 12/10/17 13:58 Eosinophils % (Manual) 0 % (0.0-4.3) 12/10/17 13:58 Basophils % (Manual) 0 % (0.0-1.8) 12/10/17 13:58 Metamyelocytes % 0 % 12/10/17 13:58 Myelocytes % 0 % 12/10/17 13:58 Promyelocytes % 0 % 12/10/17 13:58 Blast Cells % 0 % 12/10/17 13:58 Nucleated RBC % Not Reportable 12/10/17 13:58 Seg Neutrophils # 6.4 K/mm3 (1.8-7.7) 12/12/17 05:27 Seg Neutrophils # Man 10.8 K/mm3 (1.8-7.7) H 12/10/17 13:58 Band Neutrophils # 6.7 K/mm3 12/10/17 13:58 Lymphocytes # (Manual) 0.4 K/mm3 (1.2-5.4) L 12/10/17 13:58 Abs React Lymphs (Man) 0.0 K/mm3 12/10/17 13:58 Monocytes # (Manual) 0.2 K/mm3 (0.0-0.8) 12/10/17 13:58 Eosinophils # (Manual) 0.0 K/mm3 (0.0-0.4) 12/10/17 13:58 Basophils # (Manual) 0.0 K/mm3 (0.0-0.1) 12/10/17 13:58 Metamyelocytes # 0.0 K/mm3 12/10/17 13:58 Myelocytes # 0.0 K/mm3 12/10/17 13:58 Promyelocytes # 0.0 K/mm3 12/10/17 13:58 Blast Cells # 0.0 K/mm3 12/10/17 13:58 WBC Morphology Not Reportable 12/10/17 13:58 Hypersegmented Neuts Not Reportable 12/10/17 13:58 Hyposegmented Neuts Not Reportable 12/10/17 13:58 Hypogranular Neuts Not Reportable 12/10/17 13:58 Smudge Cells Not Reportable 12/10/17 13:58 Toxic Granulation Not Reportable 12/10/17 13:58 Toxic Vacuolation Not Reportable 12/10/17 13:58 Dohle Bodies Not Reportable 12/10/17 13:58 Pelger-Huet Anomaly Not Reportable 12/10/17 13:58 Compa Rods Not Reportable 12/10/17 13:58 Platelet Estimate Consistent w auto 12/10/17 13:58 Clumped Platelets Not Reportable 12/10/17 13:58 Plt Clumps, EDTA Not Reportable 12/10/17 13:58 Large Platelets Not Reportable 12/10/17 13:58 Giant Platelets Not Reportable 12/10/17 13:58 Platelet Satelliting Not Reportable 12/10/17 13:58 Plt Morphology Comment Not Reportable 12/10/17 13:58 RBC Morphology Normal 12/10/17 13:58 Dimorphic RBCs Not Reportable 12/10/17 13:58 Polychromasia Not Reportable 12/10/17 13:58 Hypochromasia Not Reportable 12/10/17 13:58 Poikilocytosis Not Reportable 12/10/17 13:58 Anisocytosis Not Reportable 12/10/17 13:58 Microcytosis Not Reportable 12/10/17 13:58 Macrocytosis Not Reportable 12/10/17 13:58 Spherocytes Not Reportable 12/10/17 13:58 Pappenheimer Bodies Not Reportable 12/10/17 13:58 Sickle Cells Not Reportable 12/10/17 13:58 Target Cells Not Reportable 12/10/17 13:58 Tear Drop Cells Not Reportable 12/10/17 13:58 Ovalocytes Not Reportable 12/10/17 13:58 Helmet Cells Not Reportable 12/10/17 13:58 [place] Bodies Not Reportable 12/10/17 13:58 [place] Rings Not Reportable 12/10/17 13:58 [place] Cells Not Reportable 12/10/17 13:58 Bite Cells Not Reportable 12/10/17 13:58 Crenated Cell Not Reportable 12/10/17 13:58 Elliptocytes Not Reportable 12/10/17 13:58 Acanthocytes (Spur) Not Reportable 12/10/17 13:58 Rouleaux Not Reportable 12/10/17 13:58 Hemoglobin C Crystals Not Reportable 12/10/17 13:58 Schistocytes Not Reportable 12/10/17 13:58 Malaria parasites Not Reportable 12/10/17 13:58 Jasvir Bodies Not Reportable 12/10/17 13:58 Hem Pathologist Commnt No 12/10/17 13:58 PT 12.7 Sec. (12.2-14.9) 12/10/17 13:58 INR 0.91 (0.87-1.13) 12/10/17 13:58 APTT 33.2 Sec. (24.2-36.6) 12/10/17 13:58 Sodium 140 mmol/L (137-145) 12/12/17 05:27 Potassium 3.7 mmol/L (3.6-5.0) 12/12/17 05:27 Chloride 101.9 mmol/L (98-107) 12/12/17 05:27 Carbon Dioxide 25 mmol/L (22-30) 12/12/17 05:27 Anion Gap 17 mmol/L 12/12/17 05:27 BUN 9 mg/dL (9-20) 12/12/17 05:27 Creatinine 0.9 mg/dL (0.8-1.5) 12/12/17 05:27 Estimated GFR > 60 ml/min 12/12/17 05:27 BUN/Creatinine Ratio 10 % 12/12/17 05:27 Glucose 85 mg/dL (75-100) 12/12/17 05:27 Lactic Acid 0.90 mmol/L (0.7-2.0) 12/11/17 05:45 Calcium 8.9 mg/dL (8.4-10.2) 12/12/17 05:27 Total Bilirubin 0.60 mg/dL (0.1-1.2) 12/10/17 13:58 AST 19 units/L (5-40) 12/10/17 13:58 ALT 12 units/L (7-56) 12/10/17 13:58 Alkaline Phosphatase 60 units/L (35-129) 12/10/17 13:58 Ammonia 24.0 umol/L (25-60) L 12/10/17 13:58 Troponin T < 0.010 ng/mL (0.00-0.029) 12/10/17 17:44 Total Protein 7.9 g/dL (6.3-8.2) 12/10/17 13:58 Albumin 3.9 g/dL (3.9-5) 12/10/17 13:58 Albumin/Globulin Ratio 1.0 % 12/10/17 13:58 TSH 2.010 mlU/mL (0.270-4.200) 12/10/17 13:58 Free T4 1.09 ng/dL (0.76-1.46) 12/10/17 13:58 Urine Color Yellow (Yellow) 12/10/17 13:53 Urine Turbidity Clear (Clear) 12/10/17 13:53 Urine pH 6.0 (5.0-7.0) 12/10/17 13:53 Ur Specific [place] 1.017 (1.003-1.030) 12/10/17 13:53 Urine Protein 100 mg/dl mg/dL (Negative) 12/10/17 13:53 Urine Glucose (UA) Neg mg/dL (Negative) 12/10/17 13:53 Urine Ketones Neg mg/dL (Negative) 12/10/17 13:53 Urine Blood Lg (Negative) 12/10/17 13:53 Urine Nitrite Pos (Negative) 12/10/17 13:53 Urine Bilirubin Neg (Negative) 12/10/17 13:53 Urine Urobilinogen 4.0 mg/dL (<2.0) 12/10/17 13:53 Ur Leukocyte Esterase Lg (Negative) 12/10/17 13:53 Urine WBC (Auto) > 182.0 /HPF (0.0-6.0) H 12/10/17 13:53 Urine RBC (Auto) 145.0 /HPF (0.0-6.0) 12/10/17 13:53 Urine Bacteria (Auto) 2+ /HPF (Negative) 12/10/17 13:53 Urine WBC Clumps 3+ /HPF 12/10/17 13:53 Urine Mucus 1+ /HPF 12/10/17 13:53 Urine Yeast (Budding) 3+ /HPF 12/10/17 13:53 Salicylates < 0.3 mg/dL (2.8-20.0) L 12/10/17 13:58 Acetaminophen < 15.0 ug/mL (10.0-30.0) 12/10/17 13:58 Plasma/Serum Alcohol < 0.01 % (0-0.07) 12/10/17 13:58
[2017-12-12] MEDS: PROTONIX PO SCH ×2 (10:00→22:03)
[2017-12-12] MEDS: LEVAQUIN 750MG/150ML 750 MG/150 ML BAG IV SCH (10:00)
[2017-12-12] MEDS: SODIUM CHLORIDE FLUSH SYRINGE 10 ML IV SCH ×2 (11:10→22:03)
[2017-12-13 07:23] LABS: Basophils % (Auto) 0.6 % (0.0-1.8); Eosinophils # (Auto) 0.3 K/mm3 (0.0-0.4); Eosinophils % (Auto) 3.6 % (0.0-4.3); Hematocrit 38.9 % (35.5-45.6); Hemoglobin 12.9 gm/dl (11.8-15.2); Lymphocytes # (Auto) 2.6 K/mm3 (1.2-5.4); Lymphocytes % (Auto) 35.4 % (13.4-35.0); Mean Corpuscular HGB Conc 33 % (32-34); Mean Corpuscular Hemoglobin 30 pg (28-32); Mean Corpuscular Volume 90 fl (84-94); Monocytes # (Auto) 0.5 K/mm3 (0.0-0.8); Monocytes % (Auto) 7.5 % (0.0-7.3); Platelet Count 243 K/mm3 (140-440); Red Blood Count 4.32 M/mm3 (3.65-5.03); Red Cell Distribution Width 13.8 % (13.2-15.2)
[2017-12-13 07:47] LABS: BUN/Creatinine Ratio 9; Blood Urea Nitrogen 8 mg/dL (9-20); Calcium 9.3 mg/dL (8.4-10.2); Hemolysis Index 5
[2017-12-13] MEDS ORDERED: LEVAQUIN PO SCH (10:00)
[2017-12-13] MEDS: VANCOMYCIN 1,250 MG in NACL 0.9% 250ML 250 ML IV SCH ×2 (10:06)
[2017-12-13] MEDS: PROTONIX PO SCH ×2 (10:07→22:52)
[2017-12-13] MEDS: SODIUM CHLORIDE FLUSH SYRINGE 10 ML IV SCH ×2 (10:07→22:54)
[2017-12-13] MEDS ORDERED: NACL 0.9% 1000 ML 1,000 ML IV SCH (11:00)
[2017-12-13] MEDS ORDERED: NACL 0.9% 500 ML 500 ML IV ONE (12:40)
--- NOTE | 2017-12-13 14:53 | Discharge Summary ---
Providers - Providers Date of Admission: 12/10/17 15:10 Attending physician: SURINDER CHEN Primary care physician: MARISA DELGADO MD Hospitalization Condition: Stable Disposition: [id number] STILL A PATIENT Exam - Constitutional Vitals: Temp Pulse Resp BP Pulse Ox 98.1 F 71 16 96/56 98 12/13/17 07:29 12/12/17 22:38 12/13/17 07:29 12/13/17 14:00 12/12/17 22:38 Plan Follow up with: PRIMARY CARE, [Primary Care Provider] - 7 Days Prescriptions: Levofloxacin [Levaquin TAB] 500 mg PO Q24HR #4 tablet
[2017-12-13 23:18] VITALS: BP 106/53
== END 2017-12-14 00:30 | DRG 871 ==
LOC: ED 12:17 → 3A 15:10
PROVIDERS: ADMIT Internal Medicine; ATTEND Hospitalist
PROC: 3E0234Z Introduction of Serum, Toxoid and Vaccine into Muscle, Percutaneous Approach (ICD-10-PCS; principal; 2017-12-11)
DX: A41.9 Sepsis, unspecified organism (principal); G92 Toxic encephalopathy; N39.0 Urinary tract infection, site not specified; F03.90 Unspecified dementia, unspecified severity, without behavioral disturbance, psychotic disturbance, mood disturbance, and anxiety; I10 Essential (primary) hypertension; K21.9 Gastro-esophageal reflux disease without esophagitis; J32.9 Chronic sinusitis, unspecified; Z86.73 Personal history of transient ischemic attack (TIA), and cerebral infarction without residual deficits; Z23 Encounter for immunization
CPT/HCPCS: 36415; 70450; 71045; 80048; 80053; 80320; 81001; 82140; 84439; 84443; 84484; 85007; 85025; 85610; 85730; 87040; 87086; 90732; 93005; 93010; 96374; G0480; J1956; J3370; J7030; J7040; J7050